=== PATIENT | female | born 2000 | race Asian ===

== ENCOUNTER 2019-07-25 03:36 | Emergency (ER) | payer OTHER ==
--- NOTE | 2019-07-25 04:05 | ED ---
HPI Chest Pain - HPI Summary HPI Summary: 18 year old female presents to the ED with a chief complaint of intermittent chest pressure starting several days ago. Pain feels like " someone was sitting on her chest" when she was lying flat or when she exerted herself. Episodes were several minutes long and would subside spontaneously. Tonight, around 2300 , this pressure became more severe and constant. Patient reports having difficulty breathing during episodes. She notes palpitations starting this evening. Patient also had a headache starting at 2300. Her symptoms were so strong that she was unable to sleep tonight. Patient has no prior medical history. Patient is currently on her period. She does not smoke tobacco. - History of Current Complaint Hx Obtained From: Patient Onset/Duration: Started Days Ago, Still Present, Worse Since - 2300 tonight Timing: Intermittent, Lasting Minutes Initial Severity: Mild Current Severity: Moderate Pain Intensity: 7 Pain Scale Used: 0-10 Numeric Chest Pain Location: Diffuse Character: Pressure/Squeezing Aggravating Factor(s): Exertion, Recumbent Position Alleviating Factor(s): Spontaneous Resolution Associated Signs and Symptoms: Positive: Chest Pain, Headaches, Shortness of Breath, Palpitations - Allergy/Home Medications Allergies/Adverse Reactions: Allergies Allergy/AdvReac Type Severity Reaction Status Date / Time No Known Allergies Allergy Verified 07/25/19 03:39 Home Medications: Home Medications Omeprazole CAP (NF) [Prilosec CAP* 20 MG] 20 mg PO DAILY #30 sheela. 07/25/19 [Rx ] PMH/Surg Hx/FS Hx/Imm Hx Previously Healthy: Yes Sensory History: Denies: Hx Deafness EENT History: Denies: Hx Deafness - Surgical History Surgical History: None Infectious Disease History: No Infectious Disease History: Denies: Traveled Outside the [place] in Last 30 Days - Family History Known Family History: Positive: Non-Contributory - Social History Alcohol Use: Rare Substance Use Type: Reports: None Smoking Status (MU): Never Smoked Tobacco Review of Systems Positive: Palpitations, Chest Pain Positive: Shortness Of Breath Positive: Headache All Other Systems Reviewed And Are Negative: Yes Physical Exam - Summary Physical Exam Summary: Appearance: Well-appearing, Well-nourished, lying in bed comfortably Skin: Warm, dry, no obvious rash Eyes: sclera anicteric, no conjunctival pallor HENT: mucous membranes moist, pharynx appears normal Neck: Supple, nontender Respiratory: Clear to auscultation, no signs of respiratory distress Cardiovascular: Normal S1, S2. No murmurs. Normal distal pulses in tibial and radial bilaterally. Abdomen: Soft, nontender, normal active bowel sounds present Musculoskeletal: Normal, Strength/ROM Intact Neurological: A&Ox3, awake and alert, mentation is normal, speech is fluent and appropriate Psychiatric: affect is normal, does not appear anxious or depressed Triage Information Reviewed: Yes Vital Signs On Initial Exam: Initial Vitals Temp Pulse Resp BP Pulse Ox 98.2 F 69 18 122/69 98 07/25/19 03:39 07/25/19 03:39 07/25/19 03:39 07/25/19 03:39 07/25/19 03:39 Vital Signs Reviewed: Yes Procedures - Sedation Patient Received Moderate/Deep Sedation with Procedure: No Diagnostics - Vital Signs Vital Signs Temp Pulse Resp BP Pulse Ox 07/25/19 03:39 98.2 F 69 18 122/69 98 - Laboratory Lab Statement: Any lab studies that have been ordered have been reviewed, and results considered in the medical decision making process. - Radiology CXR Radiology Interpretation Completed By: ED Physician Summary of Radiographic Findings: No acute process. An ED physician has reviewed this scan. Pending official read. - EKG 0424 Cardiac Rate: Bradycardia - 59 bpm EKG Rhythm: Sinus Bradycardia Ectopy: None EKG Comparison: No Significant Change Summary of EKG Findings: Sinus bradycardia at 59 BPM, P waves, QRS complex, and T waves are within normal limits, T waves and intervals are normal, no ischemic changes. Dr. Preciado reviewed and interpreted this EKG. Chest Pain Course/Dx - Course Course Of Treatment: 18 year old female presents to the ED with a chief complaint of intermittent chest pressure starting several days ago. Pain feels like " someone was sitting on her chest" when she was lying flat or when she exerted herself. Episodes were several minutes long and would subside spontaneously. Tonight, around 2300, this pressure became more severe and constant. Patient reports having difficulty breathing during episodes. She notes palpitations starting this evening. Patient also had a headache starting at 2300. Her symptoms were so strong that she was unable to sleep tonight. Patient has no prior medical history. Patient is currently on her period. Physicial exam is normal. CXR shows no acute process. Sinus bradycardia at 59 BPM, P waves, QRS complex, and T waves are within normal limits, T waves and intervals are normal, no ischemic changes. Diagnosis is - Diagnoses Provider Diagnoses: Heart palpitations Is Visit Related: No Discharge ED - Sign-Out/Discharge Documenting (check all that apply): Patient Departure - discharge home - Discharge Plan Condition: Stable Disposition: HOME Prescriptions: Omeprazole CAP (NF) [Prilosec CAP* 20 MG] 20 mg PO DAILY #30 cap. Patient Education Materials: Heart Palpitations (ED) Referrals: [facility] [Outside] No Primary Care Phys,NOPCP [Primary Care Provider] - Additional Instructions: Your EKG and chest xray are normal, and I do not hear any "red flags" in your history or on your exam to suggest that this is a serious problem. It could be due to an esophagus problem, so it would be reasonable to try a course of antacid medication; I sent a prescription to your pharmacy. If the symptoms persist you may need a more comprehensive evaluation at home. - Billing Disposition and Condition Condition: STABLE Disposition: Home - Attestation Statements Document Initiated by Scribe: Yes Documenting Scribe: Pradeep Moreira Provider For Whom Dangelo is Documenting (Include Credential): Dr. Anish Preciado Scribe Attestation: I, Pradeep Moreira, scribed for Dr. Anish Preciado on 07/28/19 at 2320. Scribe Documentation Reviewed: Yes Provider Attestation: The documentation as recorded by the scribe, Pradeep Moreira accurately reflects the service I personally performed and the decisions made by me, Dr. Anish Preciado Status of Scribe Document: Viewed
[2019-07-25 05:09] VITALS: BP 120/82
== END 2019-07-25 05:08 | disposition home or self-care (01) ==
LOC: ED 03:36
DX: R00.2 Palpitations (principal); R07.9 Chest pain, unspecified; R51 Headache; R06.02 Shortness of breath
CPT/HCPCS: 71046; 93005; 99282